=== PATIENT | female | born 1970 | race Caucasian/White ===

== ENCOUNTER 2019-05-04 04:57 | Observation (INO) ==
--- NOTE | 2019-04-08 14:12 | PAT Medication Instructions ---
Medication Instructions Date of Service April 08, 2019 Home Medications Medications ibuprofen 600 mg PO UD PRN ASK your surgeon for instructions ibuprofen 600 mg PO UD PRN NOTHING TO EAT OR DRINK AFTER MIDNIGHT PRIOR TO SURGERY Other Notes If you have any questions please call us at [phone] or [phone] or [phone] or [phone]
--- NOTE | 2019-04-11 12:06 | Anesthesiology Consultation ---
Date of Service April 11, 2019 Assessment & Plan (1) Encounter for pre-operative examination: Chart Review Chart Review: Acceptable Risk for Surgery and Patient seen in Pre Admission Testing History Surgery Operation Date: 05/04/19 08:50 Proposed Procedures p Right Total Knee Arthroplasty - Mike Wilkins MD Height/Weight Height: 5 ft 5 in Weight: 139.1 kg Allergies Allergy/AdvReac Type Severity Reaction Status Date / Time latex Allergy Unknown contact Verified 04/04/19 08:39 dermatitis No Known Drug Allergies Allergy Unknown Verified 04/04/19 08:39 Medications Home Medications Medication Instructions Recorded Confirmed Last Taken ibuprofen 600 mg PO UD PRN 04/04/19 04/04/19 Unknown Past Medical History Medical History (Updated 04/12/19 @ 11:00 by Courtney Cuellar PA-C) History of Lyme disease Sxs started in 2012- not diagnosed until 2014- tx'ed with oral abx and IV abx - follows with Lyme specialist PRN - no current issues Osteoarthritis Exercise / Class Metabolic Activity II 4-5 Yardwork/Stairs/Walk up hill Past Family History Family History Grandfather Family history of colon cancer Past Surgical History Surgical History History of x 2 History of left knee surgery History of total left knee replacement History of wisdom tooth extraction Past Anesthesia History No Hx of Anesthesia Complications and No Family Hx of Anesthesia Complications History of PONV No Hx of PONV and Hx of Motion Sickness (increased nausea when driving home from left TKA ) Social History Smoking Status: Never smoker Do You Dip or Chew Tobacco: No Hx Alcohol Use: No Hx Substance Use: No substance use type: does not use Review of Systems Patient denies chest pain, shortness of breath, dyspnea on exertion, reflux, cough, wheezing, palpitations. No hx of seizures, stroke, NH, apnea/snoring. No hx of blood clots or blood transfusions No recent steroid use Physical Exam Vital Signs VITALS BP 138/83 P 67 TEMP 98.7 SP02 98% RESP 16 Constitutional no acute distress ENMT Mouth: no TMJ clicking Thyromental Distance: > or= 3.5 Finger Breadths (3.5) Mallampati Class: III Denies missing or loose teeth Neck + short neck and + thick neck; neck extension not limited Respiratory normal respiratory effort; no respiratory distress Auscultation: lungs clear to auscultation bilaterally; no wheezes Cardiovascular Rate/Rhythm: regular rate and regular rhythm Vessels: no carotid bruit Musculoskeletal Spine: normal cervical ROM and no pain with cervical ROM Neurologic moves all extremities Psychiatric Orientation: alert Testing Laboratory Results 04/11/19 12:18 04/11/19 12:18 PT 10.3 Seconds (9.0-12.0) 04/11/19 12:18 INR 1.0 (0.9-1.1) 04/11/19 12:18 APTT 27.9 Seconds (21.0-31.0) 04/11/19 12:18 Urine Color Yellow 04/11/19 12:18 Urine Appearance Clear (Clear) 04/11/19 12:18 Urine pH 5.0 (4.5-7.5) 04/11/19 12:18 Ur Specific [place] 1.025 (1.000-1.030) 04/11/19 12:18 Urine Protein Negative (Negative) 04/11/19 12:18 Urine Glucose (UA) Negative (Negative) 04/11/19 12:18 Urine Ketones Negative (Negative) 04/11/19 12:18 Urine Nitrite Negative (Negative) 04/11/19 12:18 Ur Leukocyte Esterase Negative (Negative) 04/11/19 12:18 Urine WBC (Auto) 1-5 /hpf (0-5) 04/11/19 12:18 Urine RBC (Auto) 0-4 /hpf (0-4) 04/11/19 12:18 U Hyaline Cast (Auto) 0 /lpf (0-5) 04/11/19 12:18 U Epithel Cells (Auto) >30 /lpf (0-5) H 04/11/19 12:18 Urine Bacteria (Auto) Negative (Negative) 04/11/19 12:18 Blood Type O Negative 04/11/19 12:18 Antibody Screen NEGATIVE 04/11/19 12:18 Chronic anemia noted since at least 2012- stable with Hgb between 9-10 range Electrocardiogram Date: 04/11/19 Findings: + NSR @ (70) and + no change from (2015) Chest X-Ray Date: 04/11/19 Findings: + NAD
--- NOTE | 2019-04-11 13:02 | XRay Report ---
XR chest Pre-admission PA/Lat HISTORY: 49 years-old Female pat preoperative exam. No acute chest complaints COMPARISON: Chest radiograph 09/20/2014 TECHNIQUE: PA and lateral views of the chest FINDINGS: Cardiac silhouette is upper limits of normal in size. There is no pneumothorax, pleural effusion, foc al airspace consolidation or overt pulmonary edema. Bones of the chest appear grossly intact. Degener ative changes of the shoulders and spine. Mild convex right curvature of the lumbar spine is partiall y imaged. IMPRESSION: No acute process. ACT 112: Negative or not required by law. The above report was generated using voice recognition software. It may contain grammatical, syntax o r spelling errors. Electronically signed by: Bobo Holly M.D. 04/11/2019 1:01 PM
[2019-04-11 13:41] LABS: Basophils # (auto) 0.08 K/uL (0-0.2); Basophils % (auto) 0.9 %; Eosinophils # (auto) 0.42 K/uL (0-0.5); Eosinophils % (auto) 4.6 %; Hematocrit (blood only) 34.3 % (37-47); Hemoglobin 10.5 g/dL (12.0-16.0); Immature Granulocytes # (auto) 0.03 K/uL (0.00-0.02); Immature Granulocytes % (auto) 0.3 %; Lymphocytes # (auto) 2.48 K/uL (1.2-3.4); Lymphocytes % (auto) 27.2 %; Mean Corpuscular Hemoglobin 18.9 pg (25-34); Mean Corpuscular Hgb Conc 30.6 g/dL (32-36); Mean Corpuscular Volume 61.6 fL (80-100); Monocytes # (auto) 0.65 K/uL (0.11-0.59); Monocytes % (auto) 7.1 %; Neutrophils # (auto) 5.45 K/uL (1.4-6.5); Neutrophils % (auto) 59.9 %; Platelet Count 392 K/uL (130-400); RDW Coefficient of Variation 21.1 % (11.5-14.5); RDW Standard Deviation 46.7 fL (36.4-46.3); Red Blood Count 5.57 M/uL (4.2-5.4); White Blood Count 9.11 K/uL (4.8-10.8)
[2019-04-11 13:42] LABS: Appearance Urine Clear (Clear); Bacteria Urine Automated Negative (Negative); Bilirubin Urine Negative (Negative); Blood Urine 1+ (Negative); Cast Urine Automated 0 /lpf (0-5); Color Urine Yellow; Epithelial Cell Urine Auto >30 /lpf (0-5); Glucose Urine UA Negative (Negative); Ketones Urine Negative (Negative); Leukocyte Esterase Urine Negative (Negative); Nitrite Urine Negative (Negative); Protein Urine Negative (Negative); Specific Gravity Urine 1.025 (1.000-1.030); Urobilinogen Urine Negative (Negative)
[2019-04-11 13:52] LABS: Partial Thromboplastin Time 27.9 Seconds (21.0-31.0); Prothrombin Time 10.3 Seconds (9.0-12.0)
[2019-04-11 13:57] LABS: BUN Creatinine Ratio 22.3 (10-20); Calcium 8.8 mg/dl (8.5-10.1); Creatinine Clr Calc Pharmacy 132.9 ml/min; Est GFR (African American) 114.3; Est GFR (Non-African American) 98.6; Potassium 4.2 mmol/L (3.5-5.1); RBC Urine Automated 0-4 /hpf (0-4)
[2019-04-11 14:46] LABS: Anisocytosis Present; Microcytosis Present; Poikilocytosis Present
--- NOTE | 2019-04-11 14:46 | Electrocardiogram Report ---
Test Reason : Blood Pressure : / mmHG Vent. Rate : 070 BPM Atrial Rate : 070 BPM P-R Int : 174 ms QRS Dur : 078 ms QT Int : 400 ms P-R-T Axes : 053 028 068 degrees QTc Int : 432 ms Normal sinus rhythm Normal ECG When compared with ECG of 20-SEP-2014 15:36, No significant change was found Confirmed by Brian Parrish ([id number]) on 04/11/2019 2:46:28 PM Referred By: Mike Wilkins Confirmed By:Brian Parrish
--- NOTE | 2019-05-02 17:02 | History and Physical Report ---
DATE OF ADMISSION: 05/04/2019 CHIEF COMPLAINT: Right knee pain. HISTORY OF PRESENT ILLNESS: This 49-year-old white female presents to the office with complaints of right knee pain for the last 4-5 years. Pain has become worse with time. She has tried viscosupplementation, activity modification, oral pain medications, and oral anti-inflammatories without lasting improvement. Symptoms have become worse over the last 6 months. Treatments have not helped. She now has difficulty with ADLs. Pain is worse with weightbearing. It is affecting her ability to walk. No numbness or tingling. She notes occasional effusions. Pain is constant and includes night pain. She elects to proceed with right total knee arthroplasty in hopes of improving her discomfort and function. Preoperative imaging has been obtained. PAST MEDICAL HISTORY: Significant for osteoarthritis, hypertension, elevated lipids, obesity, and history of thalassemia that does not require treatment. PREVIOUS SURGERIES: Left total knee arthroplasty done elsewhere 10/2014. in 1989 and 1992, knee arthroscopy in 1980, wisdom tooth extraction. ALLERGIES: NKDA. POSSIBLE SENSITIVITY TO LATEX. CURRENT MEDICATIONS: Vitamin D, vitamin B complex, erythromycin 2% gel. FAMILY HISTORY: Hypertension and colon cancer. 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 Single. No tobacco use, no ETOH use. REVIEW OF SYSTEMS: A total of 10 systems are reviewed and are significant only for above stated conditions. PHYSICAL EXAMINATION: VITAL SIGNS: Height 165.6 cm, weight 139 kilograms. BMI 50.7, temperature 37.0 oral, BP 152/80, pulse 72, O2 sat 97% on room air. GENERAL: Well-developed, well-nourished, middle aged white female in no acute distress. Sitting in a chair. Alert and oriented. Obese. SKIN: Warm and dry with good turgor. No rashes or lesions. No ecchymosis or erythema. She is quite landers. HEENT: Normocephalic, atraumatic. Eyes: PERRLA, EOMI. Nares patent bilaterally without turbinate enlargement. Oropharynx without erythema or exudate. No lesions noted. Uvula midline. Oral mucosa moist. Good dentition. HEART: RRR. No MGR. LUNGS: Clear to auscultation bilaterally. No crackles, rhonchi or wheezing. Good air movement. ABDOMEN: Morbidly obese. Bowel sounds present x4, soft, nontender. No organomegaly. No masses. MUSCULOSKELETAL: Right knee evaluation reveals a mild intraarticular effusion. No redness or warmth. She lacks a few degrees of terminal extension. Flexion to around 100 degrees, limited by body habitus. Stable collateral ligaments. She has focal discomfort with palpation over the medial and lateral joint lines with medial being worst. She has peripatellar discomfort with palpation. No defect in the patellar tendon or quadriceps tendon. Ambulates with an antalgic gait. NEUROLOGIC: Cranial nerves II through XII are intact. Gross sensation is intact across her lower extremities by soft touch. Peripheral pulses are 2+. DATA: Radiographic imaging previously obtained shows end-stage DJD of the medial and patellofemoral compartments. Periarticular osteophytes, subchondral sclerosis, and joint space narrowing are all present. IMPRESSION: Right knee end-stage degenerative joint disease. PLAN: Postoperative prescriptions for Percocet and Coumadin will be provided at discharge from the hospital. Anticipate discharge to home with home health services. She will obtain medical clearance from her PCP. Preoperative lab work, EKG, and chest x-ray have been ordered. She already has access to a walker and cane. Informed written consent to proceed with right total knee arthroplasty will be obtained the morning of surgery.
--- NOTE | 2019-05-04 05:47 | History & Physical Bridge Note ---
Date of Service May 04, 2019 History & Physical Bridge Note I have examined the patient, reviewed the History & Physical and in the interval since the performance of the History & Physical I have noted the following changes of clinical significance:consent obtained. no changes noted
[2019-05-04] MEDS ORDERED: TRANEXAMIC ACID 1,000 MG **IV Intra-op IV SCH (06:00)
[2019-05-04] MEDS ORDERED: ROPIVACAINE 0.5% HCL/PF 150 MG, BUPIVACAINE 0.5% MPF 30 ML, EPINEPHrine 0.15 MG, Ketoro... INFIL SCH (06:00)
[2019-05-04] MEDS ORDERED: TRANEXAMIC ACID 1,000 MG **IV Pre-op IV SCH (06:00)
[2019-05-04] MEDS ORDERED: LR 60ML/HR IV SCH (06:00)
[2019-05-04] MEDS ORDERED: LR 500ML BOLUS, THEN 15ML/HR IV SCH (06:00)
[2019-05-04] MEDS ORDERED: BUPIVACAINE/EPINEPHRINE 0.25% 1:200,000 30 ML VIAL ONE (06:26)
[2019-05-04] MEDS ORDERED: BUPIVACAINE 0.5 % 5 MG/1 ML PF 10ML VIAL ONE (06:26)
[2019-05-04] MEDS ORDERED: ePHEDrine sulfate 50 MG/ML AMP IV PRN (06:32)
[2019-05-04] MEDS ORDERED: ATROPINE SULFATE 0.1 MG/ML 10ML SYR IV PRN (06:32)
[2019-05-04] MEDS ORDERED: ONDANSETRON INJ 2 MG/ML 2 ML VIAL IV PRN ×2 (06:32→09:23)
[2019-05-04] MEDS ORDERED: HYDROmorphone INJ 2 MG/ML SYR/VIAL IV PRN (06:32)
[2019-05-04] MEDS ORDERED: fentaNYL citrate 100 MCG/2 ML VIAL IV PRN (06:32)
[2019-05-04] MEDS ORDERED: PROMETHAZINE HCL 12.5 MG in SODIUM CHLORIDE 0.9% 50 ML IV PRN (06:32)
[2019-05-04] MEDS ORDERED: ORTHO JOINT ANESTHETIC ONE (06:35)
[2019-05-04] MEDS ORDERED: MIDAZOLAM HCL 1 MG/ML 2ML VIAL ONE (06:41)
[2019-05-04] MEDS ORDERED: fentaNYL citrate 100 MCG/2 ML VIAL ONE (06:41)
[2019-05-04] MEDS: CEFAZOLIN 3000MG 72.5 ML IV SCH ×2 (06:55→07:55)
[2019-05-04] MEDS ORDERED: ONDANSETRON INJ 2 MG/ML 2 ML VIAL ONE (07:32)
[2019-05-04] MEDS ORDERED: PROPOFOL IV EMULSION 10 MG/ML 20 ML VIAL IV ONE ×2 (07:32→08:02)
--- NOTE | 2019-05-04 08:30 | Post Operative Brief Note ---
Immediate Post Op Note v1 Date of Surgery May 04, 2019 Pre & Post Diagnosis Operation Date: 05/04/19 07:00 Pre-Op Diagnosis: Right Knee End-Stage Degenerative Joint Disease Post-Op Diagnosis: Right Knee End-Stage Degenerative Joint Disease I identified the patient and participated in the time-out.: Yes Procedure Operation Date: 05/04/19 07:00 Actual Procedures p Right Total Knee Arthroplasty(Right) - Mike Wilkins MD Surgeon Mike Wilkins MD Coremaker Bench malka/anthony Estimated Blood Loss 75 Findings Consistent with Post-Op Diagnosis
--- NOTE | 2019-05-04 08:40 | Operative Report ---
Post Operative Report Pre & Post Diagnosis Operation Date: 05/04/19 07:00 Pre-Op Diagnosis: Right Knee End-Stage Degenerative Joint Disease Post-Op Diagnosis: Right Knee End-Stage Degenerative Joint Disease I identified the patient and participated in the time-out.: Yes Procedure Operation Date: 05/04/19 07:00 Actual Procedures p Right Total Knee Arthroplasty(Right) - Mike Wilkins MD Surgeon LISA Wilkins MD Drum Sander Setter malka/anthony Estimated Blood Loss 75 Findings Consistent with Post-Op Diagnosis Specimens see operative report Drains none Complications none Disposition Accompanied Patient To Recovery: Yes Disposition: Recovery Room Indications This 49-year-old white female presented to the office with complaints of intractable right knee pain. She had tried conservative care measures without improvement. She elected to proceed with surgical intervention after being educated about potential risks and outcomes. Preoperative imaging was obtained Description of Procedure Patient was administered a spinal anesthetic and then taken to the operating room where she was given sedation. She was prepped and draped in the usual sterile fashion. Please see Dr. Wilkins's operative report for specifics of the procedure. I was present for the entire case from initial patient positioning wound closure. Assistance was provided in tissue retraction, hemostasis, trial implant placement, final implant placement, and final wound closure. Patient was taken to the recovery room in satisfactory condition. I attest to the content of the Intraoperative Record and any orders documented therein. Any exceptions are noted below.
--- NOTE | 2019-05-04 08:53 | Operative Report ---
DATE OF OPERATION: 05/04/2019 SURGEON: Mike Wilkins MD. EARLY CHILDHOOD EDUCATION WORKER: Dr. Elaine. SECOND EARLY CHILDHOOD EDUCATION WORKER: Ruddy Galloway PA-C. PREOPERATIVE DIAGNOSIS: Osteoarthritis, right knee. POSTOPERATIVE DIAGNOSIS: Osteoarthritis, right knee. OPERATION PERFORMED: Cemented right total knee replacement. SUMMARY OF IMPLANTS: Size 3 right posterior cruciate substituting femur, size 3 mobile bearing tray, a 38 patella, size inserted 3 x 10 posterior cruciate substituting, 2 bags of [place] G cement. ESTIMATED BLOOD LOSS: 75 mL PATHOLOGY: Pending on bone. PERIOPERATIVE SITUATION: Medically cleared female with intractable knee pain, had her other side done years ago. At this point in time, wants to proceed with surgical treatment. I told her this side with noncemented, I told her I would use a rotating platform cement to the knee, she accepted. DESCRIPTION OF PROCEDURE: The patient appropriately identified, site verified, consent verified. Antibiotics confirmed as being given. The right lower extremity was prepped and draped in usual routine fashion. Tourniquet inflated to 300 mmHg after exsanguination of the limb with a rubber Esmarch bandage for a total of 55 minutes. Midline exposure utilized. Parapatellar arthrotomy performed. Synovectomy completed, osteophytes resected. Distal femur entered, cruciates resected, tibia subluxated, menisci resected. Distal femur resected 14 mm, proximal tibia resected 4 mm, extension gap was excellent. Femur was sized to between a 4 and a 3, was measured 4 cut 3. No notching. Flexion gap was checked. It was slightly tight medially release performed and it was excellent. Box cut then made. Size 3 femur fit well. Tibia broached and reamed to a size x3, a size 10 spacer fit well and tracked well, mid range stability excellent. The patella was then resected leaving 16 mm and a size 38 button trial placed after the drill holes seated, it tracked well. All implants were then removed. Orthomix was all injected about the knee. The wound irrigated with Betadine Pulsavac and the permanent cemented in position from tibia to femur to patella in that order. After 12 minutes, the tourniquet deflated. Minor bleeding points controlled with electrocautery. After 14 minutes knee flexed everything tracked well. Everything was stable. The trial implant spacer was then removed and the wound irrigated with Betadine Pulsavac and then permanent liner seated, knee reduced and closed in 40 degrees of flexion with #2 Vicryl, 2-0 Vicryl and stainless steel clips. Appropriate dressing applied. The patient transferred to recovery room in satisfactory condition having tolerated the procedure well. DVT prophylaxis per protocol. I attest to the content of the Intraoperative Record and any orders documented therein. Any exception s are noted below.
--- NOTE | 2019-05-04 09:21 | Anesthesiology Progress Note ---
Date of Service May 04, 2019 Anesthesia Post Procedure Vital Signs Vital Signs: Temp Pulse Pulse Resp BP Pulse Ox 05/04/19 09:00 36.4 C L 68 20 115/64 93 05/04/19 08:50 68 18 117/62 94 05/04/19 08:41 36.1 C L 72 16 108/62 94 05/04/19 05:59 36.8 C 73 18 162/96 H 96 Transfer of Care Handoff Completed per policy Notes Mental Status: alert / awake / arousable and participated in evaluation Patient Amnestic to Procedure: Yes Nausea / Vomiting: adequately controlled Pain: adequately controlled Airway Patency, RR, SpO2: stable & adequate BP & HR: stable & adequate Hydration State: stable & adequate Anesthetic Complications: no major complications apparent and Pt Satisfied with anesthetic care
[2019-05-04] MEDS ORDERED: HYDROmorphone INJ 0.5 MG/0.5 ML SYR IV PRN (09:23)
[2019-05-04] MEDS ORDERED: DiphenhydrAMINE HCL 50 MG/ML VIAL IV PRN (09:23)
[2019-05-04] MEDS ORDERED: METOCLOPRAMIDE HCL INJ 5 MG/ML 2 ML VIAL IV PRN (09:23)
[2019-05-04] MEDS ORDERED: bisacodyL 10 MG SUPP PR PRN (09:23)
[2019-05-04] MEDS ORDERED: SODIUM CHLORIDE 0.9% 1000ML 1,000 ML IV SCH (09:23)
[2019-05-04] MEDS ORDERED: OXYCODONE HCL IR 5 MG TAB (IMMEDIATE RELEASE) PO PRN (09:23)
[2019-05-04] MEDS ORDERED: MAGNESIUM HYDROXIDE SUSP 30 ML UDC PO PRN (09:23)
[2019-05-04] MEDS ORDERED: ALUMINUM/MAGNESIUM SUSP 30 ML UDC PO PRN (09:23)
[2019-05-04] MEDS ORDERED: NALOXONE HCL 0.4 MG/1 ML VIAL/CARP IV PRN (09:23)
--- NOTE | 2019-05-04 09:23 | XRay Report ---
XR knee RT 1 or 2V routine CLINICAL HISTORY: post op AP/lateral COMPARISON: Right knee radiographs December 29, 2018. FINDINGS: Alignment of the total right knee arthroplasty is anatomic. There is no periprosthetic fra cture or unexpected radiopaque foreign body. There are skin talia. IMPRESSION: Expected findings following total right knee arthroplasty. ACT 112: Negative or not required by law. Electronically signed by: Arnoldo Gan M.D. 05/04/2019 9:22 AM
[2019-05-04] MEDS: MULTIVITAMIN TAB PO SCH (10:37)
[2019-05-04] MEDS: DOCUSATE SODIUM 100 MG CAP PO SCH ×2 (10:37→20:37)
[2019-05-04] MEDS: KETOROLAC 30 MG/ML VIAL IV SCH ×3 (10:38→21:44)
--- NOTE | 2019-05-04 10:59 | Operative Report ---
Post Operative Report Pre & Post Diagnosis Operation Date: 05/04/19 07:00 Pre-Op Diagnosis: Right Knee End-Stage Degenerative Joint Disease Post-Op Diagnosis: Right Knee End-Stage Degenerative Joint Disease I identified the patient and participated in the time-out.: Yes Procedure Operation Date: 05/04/19 07:00 Actual Procedures p Right Total Knee Arthroplasty(Right) - Mike Wilkins MD Surgeon Mike Wilkins MD Engine Oiler malka/anthony Estimated Blood Loss 75 Findings Consistent with Post-Op Diagnosis Specimens as per procedure notes Complications none Disposition Accompanied Patient To Recovery: Yes Disposition: Recovery Room Description of Procedure Supine, standard prep and drape, time out, tourniquet Right Total Knee Arthroplasty Please see Dr Wilkins's procedure notes for specific details I was present throughout the case, assisted for wound closure and transferred the patient to PACU in stable condition I attest to the content of the Intraoperative Record and any orders documented therein. Any exceptions are noted below.
[2019-05-04] MEDS: ORTHO WARFARIN NOMOGRAM SCH (13:36)
[2019-05-04] MEDS: ACETAMINOPHEN 500 MG TAB PO SCH ×2 (13:43→21:44)
--- NOTE | 2019-05-04 14:06 | Progress Note ---
DATE: 05/04/2019 SUBJECTIVE: Postop status post right knee replacement. The patient is already up walking around the room. She notes she does not have any chest pain, shortness of breath, fever, chills, nausea, vomiting or headache. OBJECTIVE: Vital signs are stable. She is afebrile. The femoral sciatic nerve function is excellent. Wound dressing clean, dry and intact. ASSESSMENT: Doing well status post right total knee replacement. Postop x-rays look excellent. Discharge to home tomorrow.
--- NOTE | 2019-05-04 14:11 | Discharge Summary ---
CHIEF COMPLAINT: Right knee pain. HISTORY OF PRESENT ILLNESS: A 49-year-old female admitted for elective right total knee replacement. She has no issues. At this point in time She is up ambulating, eating, drinking, voiding. Postoperative x-rays look excellent. PAST MEDICAL HISTORY: Remarkable for osteoarthritis, hypertension, hyperlipidemia, obesity, history of thalassemia does not require treatment. PAST SURGICAL HISTORY: Include left total knee replacement in 2014, , knee arthroscopy in 1980. [place] tooth extraction. ALLERGIES: None. Has sensitivity to powder in latex gloves; not the latex. PREADMISSION MEDICATIONS: Include vitamin D, B complex, erythromycin 2% gel. She will continue all of her medications, add p.r.n. Percocet and Coumadin to keep INR 1.8-2.2. FAMILY HISTORY: Remarkable for hypertension, colon cancer. 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 She is single. No tobacco or alcohol use. REVIEW OF SYSTEMS: noncontributory. ASSESSMENT: Doing well status post right total knee replacement. Will continue with postop care pathway. Discharge to home tomorrow if she does well overnight. TAE
[2019-05-04] MEDS ORDERED: TRANEXAMIC ACID / 0.7% NACL 1,000 MG/100 ML BAG IV SCH (14:44)
[2019-05-04] MEDS: CEFAZOLIN 2000MG 2,000 MG/15 ML SYR IV SCH ×2 (15:58→21:44)
[2019-05-04] MEDS ORDERED: WARFARIN SOD 5 MG TAB PO SCH (16:00)
[2019-05-04] MEDS: ASCORBIC ACID 500 MG TAB PO SCH (18:36)
[2019-05-04] MEDS: FERROUS GLUCONATE 324 MG TAB PO SCH (18:36)
[2019-05-04] MEDS ORDERED: SENNA 8.6 MG TAB PO SCH (21:00)
[2019-05-05] MEDS: KETOROLAC 30 MG/ML VIAL IV SCH (03:43)
[2019-05-05] MEDS: ACETAMINOPHEN 500 MG TAB PO SCH (05:48)
[2019-05-05 06:21] LABS: Hematocrit (blood only) 31.3 % (37-47); Hemoglobin 9.5 g/dL (12.0-16.0); Mean Corpuscular Hgb Conc 30.4 g/dL (32-36); Mean Corpuscular Volume 62.7 fL (80-100); Platelet Count 255 K/uL (130-400); RDW Coefficient of Variation 20.6 % (11.5-14.5); RDW Standard Deviation 46.4 fL (36.4-46.3); Red Blood Count 4.99 M/uL (4.2-5.4); White Blood Count 7.66 K/uL (4.8-10.8)
[2019-05-05 06:31] LABS: INR 1.1 (0.9-1.1); Prothrombin Time 10.9 Seconds (9.0-12.0)
--- NOTE | 2019-05-05 06:53 | Progress Note ---
DATE: 05/04/2019 SUBJECTIVE: Postop day #1 status post right total knee replacement. The patient is doing well, has no major issues. Her pain is well managed. She denies any chest pain, shortness of breath, fever, chills, nausea, vomiting or headache. OBJECTIVE: Vital signs are stable. She is afebrile. Hematocrit stable in the 30s. Neurovascular check femoral sciatic nerve is normal. Wound dressing clean, dry and intact. ASSESSMENT: Overall, doing well. Discharge to home today. INR is 1.1. Discharged on 4 mg Coumadin. Check INR on Thursday.
[2019-05-05 06:54] LABS: Calcium 8.5 mg/dl (8.5-10.1); Est GFR (African American) 118.5; Est GFR (Non-African American) 102.3
[2019-05-05] MEDS ORDERED: dexAMETHasone 10 MG in SYRINGE 0 ML IV SCH (08:00)
--- NOTE | 2019-05-05 08:05 | Anesthesiology Progress Note ---
Date of Service May 05, 2019 Anesthesia Post Procedure Vital Signs Vital Signs: Temp Pulse Pulse Pulse Resp BP Pulse Ox 05/05/19 03:41 36.7 C 82 24 132/85 94 05/04/19 23:44 36.7 C 81 22 144/81 H 94 05/04/19 19:14 36.8 C 68 22 138/85 96 05/04/19 12:22 36.3 C L 70 18 135/88 97 05/04/19 11:21 36.3 C L 68 18 125/77 96 05/04/19 10:11 36.3 C L 60 18 112/77 95 05/04/19 09:15 36.4 C L 67 16 112/76 96 05/04/19 09:00 36.4 C L 68 20 115/64 93 05/04/19 08:50 68 18 117/62 94 05/04/19 08:41 36.1 C L 72 16 108/62 94 Pain Intensity Right Knee: Pain Intensity: 2 Notes Mental Status: alert / awake / arousable Patient Amnestic to Procedure: Yes Nausea / Vomiting: improving with treatment Pain: adequately controlled Airway Patency, RR, SpO2: stable & adequate BP & HR: stable & adequate Hydration State: stable & adequate Neuraxial Anesthesia: was administered and sensory block resolved Anesthetic Complications: no major complications apparent and Pt Satisfied with anesthetic care
[2019-05-05] MEDS: ASCORBIC ACID 500 MG TAB PO SCH (08:42)
[2019-05-05] MEDS: FERROUS GLUCONATE 324 MG TAB PO SCH (08:42)
[2019-05-05] MEDS: DOCUSATE SODIUM 100 MG CAP PO SCH (08:43)
[2019-05-05] MEDS: MULTIVITAMIN TAB PO SCH (08:43)
--- NOTE | 2019-05-05 09:08 | Orthopedic Progress Note ---
Date of Service May 05, 2019 Assessment & Plan (1) Status post total right knee replacement: Patient's dressings were changed today by me. Prevena wound VAC was placed. She will return to the office next for wound VAC removal. PT/OT this morning. Coumadin per nomogram today. Continue Coumadin 4 mg daily on Thursday, Thursday, and Thursday, and have her blood rechecked on Thursday. Continue using the walker when ambulating. Use the knee immobilizer until Thursday morning, then discontinue Ice and elevate the knee frequently to reduce pain and swelling Continue BRADLY hose for 6 weeks Discharge to home today after PT/OT with outpatient services Admission and Anticipated Discharge Date Admission Date: May 04, 2019 Subjective Patient is seen in her room this morning. Her only complaint at this time is nausea. She denies any problems overnight. No chest pain, shortness of breath, nausea, vomiting, or abdominal pain. Knee pain was tolerable. She feels ready for discharge to home today. Review of Systems Review of Systems: Unchanged from preop yesterday. Physical Exam Physical Exam: General: Well-developed, well-nourished, middle-aged white female, in no acute distress. Sitting on her bed. Alert and oriented. Talkative. Skin: Warm and dry with good turgor. No rashes or lesions. Right knee has her postop dressing in place without any bleeding. Musculoskeletal: Right leg has her postop dressing in place. Upon removal, no blood on her dressings. She has no active bleeding from the surgical site. Mukesh are intact. Wound edges are well approximated. Expected postoperative edema. No ecchymosis. Full extension. She is unable to perform a straight leg raise. Intact motor function to the ankle and toes. Neurologic: Gross sensation is intact across the left leg by soft touch. Peripheral pulses are 2+. Results & Data ([facility]) Vital Signs (Past 12 Hours) Vital Signs Temp Pulse Resp BP Pulse Ox 05/05/19 08:20 37.0 C 81 18 144/78 H 96 05/05/19 03:41 36.7 C 82 24 132/85 94 05/04/19 23:44 36.7 C 81 22 144/81 H 94 Laboratory Results INR today is 1.1. H&H this morning are 9.5 and 31.3. WBCs are 7.6.
[2019-05-05] MEDS ORDERED: WARFARIN SOD 5 MG TAB PO SCH (11:00)
[2019-05-05] MEDS: ORTHO WARFARIN NOMOGRAM SCH (13:01)
== END 2019-05-05 14:04 | disposition home health service (06) ==
LOC: ASU 04:57 → 3E 08:45 → INTOOBSV 08:45